=== PATIENT | male | born 1995 | race Hispanic/Latino ===

== ENCOUNTER 2017-12-16 08:59 | Emergency (ER) | payer SELFPAY ==
[2017-12-16 09:05] VITALS: BP 105/62; PULSE 75; RESP 14; TEMP 36.8; O2SAT 99; BMI 22.5
[2017-12-16] MEDS: SODIUM CHLORIDE 0.9% 1,000 ML 150 ML IV (09:34)
[2017-12-16 09:43] LABS: Add Manual Diff / Slide Review NO; Basophils Percent Auto 0.8 % (0-2); Eosinophils Percent Auto 0.9 % (2-4); Hematocrit 37.6 % (41-53); Hemoglobin 13.5 g/dL (13.5-17.5); Lymphocytes Percent Auto 32.1 % (25-40); Mean Corpuscular Hemoglobin 31.9 PG (26-34); Mean Corpuscular Volume 88.6 fL (80-100); Monocytes Percent Auto 7.8 % (3-14); Neutrophils Absolute Auto 2700 /uL (3000-5900); Neutrophils Percent Auto 58.4 % (50-75); Platelet Count 171 X10^3/uL (150-400); Red Blood Cell Count 4.25 X10^6/uL (4.5-5.9); Red Cell Distribution Width 12.5 % (11.6-14.8); White Blood Cell Count 4.7 X10^3/uL (4.5-11.0)
[2017-12-16 09:56] LABS: Alanine Aminotransferase 35 IU/L (21-72); Albumin 4.4 g/dL (3.5-5.0); Albumin Globulin Ratio 1.3 (1.0-2.8); Alkaline Phosphatase 61 U/L (38-126); Aspartate Aminotransferase 31 IU/L (17-59); BUN Creatinine Ratio 21.4 (6-22); Bilirubin Total 1.5 mg/dL (0.2-1.3); Calcium 9.3 mg/dL (8.4-10.2); Estimated Glomerular Filt Rate > 60.0 mL/min (>60); Globulin 3.4 g/dL (1.7-4.1); Glucose 94 mg/dL (70-100); HEMOLYSIS 29 (0-50); Lipase 14 U/L (23-300); Potassium 4.2 mmol/L (3.4-5.1); Sodium 141 mmol/L (137-145); Total Protein 7.8 g/dL (6.3-8.2)
--- NOTE | 2017-12-16 10:09 | DI.RAD.S_ITS ---
PROCEDURE: XR ACUTE ABDOMEN SERIES INDICATIONS: Abdominal pain TECHNIQUE: One view chest and two views of the abdomen were acquired. COMPARISON: None. FINDINGS: Surgical changes and devices: None. Chest: Lungs are clear. Heart size is normal. No pleural effusions. No pneumoperitoneum. Abdomen: Bowel gas pattern is normal. No suspicious calcifications. Visualized solid organ contours appear normal. Ingested radiodense material is present throughout the bowel. Bones: No suspicious bony lesions. IMPRESSION: No acute cardiopulmonary findings. No acute intra-abdominal findings. Dictated by: Jeannie Little M.D. on 12/16/2017 at 11:06 Approved by: Jeannie Little M.D. on 12/16/2017 at 11:07
--- NOTE | 2017-12-16 11:13 | ED_ITS ---
HPI - Abdominal Pain General Chief Complaint: Abdominal Pain Stated Complaint: NOT EATING FOR 3 DAYS,NAUSEA,DIARRHEA Time Seen by Provider: 12/16/17 09:12 Source: patient and family Mode of arrival: ambulatory Limitations: no limitations History of Present Illness HPI narrative: Patient presents to the emergency department with a chief complaint left lower quadrant pain and diarrhea for the past 3 days. He states the diarrhea started on Sunday and since then he has gradually developed left lower quadrant pain. He denies nausea or vomiting nor fever or chills. He has had no recent travel, exposure to bad foods or use of antibiotics. MD complaint: abdominal pain Onset (ago): day(s) Pain Consistency: constant Location: LLQ Severity: mild Quality: cramping and aching Radiation: none Migration to: no migration Relieving factors: rest Exacerbating factors: movement Associated symptoms: denies other symptoms Related Data Previous Rx's Medication Instructions Recorded diphenoxylate-atropine [Lomotil] 1 tab PO Q6H PRN #10 tab 12/16/17 ondansetron [Zofran ODT] 4 mg PO Q6H PRN #14 tab 12/16/17 Allergies Allergy/AdvReac Type Severity Reaction Status Date / Time No Known Drug Allergies Allergy Verified 12/16/17 09:08 Review of Systems Review of Systems All systems reviewed & are unremarkable except as noted in HPI and below Constitutional Denies chills, Denies fever(s), Denies lethargy and Denies weakness ENT Ears, Nose, Mouth, and Throat: Denies change in voice, Denies neck pain and Denies sore throat Cardiovascular Denies chest pain, Denies irregular heart rhythm, Denies lightheadedness, Denies palpitations, Denies dyspnea, Denies dyspnea on exertion and Denies orthopnea Respiratory Denies cough, Denies dyspnea, Denies dyspnea on exertion and Denies wheezing Gastrointestinal Gastrointestinal: Reports abdominal pain, Denies change in bowel habits, Reports diarrhea, Denies nausea and Denies vomiting Genitourinary Denies hematuria, Denies flank pain, Denies urinary incontinence and Denies urinary urgency Musculoskeletal Denies neck pain Integumentary/Breasts Denies pruritus, Denies erythema, Denies rash and Denies wounds Neurologic Denies weakness Endocrine Denies palpitations Hematologic/Lymphatic Denies easy bruising Allergic/Immunologic Denies wheezing PFSH Family History Grandmother Age: 68 Diabetes mellitus Heart disease Hypertension Social History Smoking Status: Current some day smoker Exam Narrative Exam Narrative: Pleasant 22-year-old male in no obvious distress Const General: cooperative, healthy appearing, comfortable and well developed Nutritional Appearance: well nourished Orientation: alert, awake, oriented x3 and not confused [facility] Head: normocephalic and atraumatic Ears: external ears normal and TM's normal bilaterally Nose: external nose normal and No nasal discharge Face and sinus: sinuses nontender, face symmetric, no sinus tenderness and No dry mucous membranes Mouth: oral mucosae normal and moist mucous membranes Teeth and gingiva: dentition normal Throat: tonsils normal and uvula midline Resp Effort & Inspection: normal respiratory effort, able to speak in complete sentences, no respiratory distress and no use of accessory muscles Auscultation: clear to auscultation bilaterally, no rales, no rhonchi and no wheezes GI Inspection: non-distended Palpation: soft, no hepatosplenomegaly, No guarding, No pulsatile mass and tender (Mildly in the left lower quadrant) Auscultation: normal bowel sounds Back/Spine/Pelvis Back: No CVA tenderness Cervical Spine: cervical ROM normal and No pain with cervical ROM Thoracic/Lumbar Spine: thoracic and lumbar spine normal to inspection Neuro General: alert, awake and oriented x3 Cognition: normal cognition Speech: speech normal Extrem General: full ROM, no clubbing, cyanosis or edema, no pedal edema and no calf tenderness MDM - Abdominal Pain Lab Data Result diagrams: 12/16/17 09:33 12/16/17 09:33 Lab Results 12/16/17 12/16/17 Range/Units 09:33 09:33 WBC 4.7 (4.5-11.0) X10^3/uL RBC 4.25 L (4.5-5.9) X10^6/uL Hgb 13.5 (13.5-17.5) g/dL Hct 37.6 L (41-53) % MCV 88.6 (80-100) fL MCH 31.9 (26-34) PG MCHC 36.0 (30-36) % RDW 12.5 (11.6-14.8) % Plt Count 171 (150-400) X10^3/uL Neut % (Auto) 58.4 (50-75) % Lymph % (Auto) 32.1 (25-40) % Davidson % (Auto) 7.8 (3-14) % Eos % (Auto) 0.9 L (2-4) % Baso % (Auto) 0.8 (0-2) % Neut # (Auto) 2700 L (7576-5835) /uL Sodium 141 (137-145) mmol/L Potassium 4.2 (3.4-5.1) mmol/L Chloride 103.0 (98-107) mmol/L Carbon Dioxide 25.0 (22-32) mmol/L BUN 15.0 (9-20) mg/dL Creatinine 0.70 (0.66-1.25) mg/dL Estimated GFR > 60.0 (>60) mL/min BUN/Creatinine Ratio 21.4 (6-22) Glucose 94 (70-100) mg/dL Calcium 9.3 (8.4-10.2) mg/dL Total Bilirubin 1.5 H (0.2-1.3) mg/dL AST 31 (17-59) IU/L ALT 35 (21-72) IU/L Alkaline Phosphatase 61 (38-126) U/L Total Protein 7.8 (6.3-8.2) g/dL Albumin 4.4 (3.5-5.0) g/dL Globulin 3.4 (1.7-4.1) g/dL Albumin/Globulin Ratio 1.3 (1.0-2.8) Lipase 14 L (23-300) U/L Imaging Data Abdominal x-ray: Radiologist's impression: PROCEDURE: XR ACUTE ABDOMEN SERIES INDICATIONS: Abdominal pain TECHNIQUE: One view chest and two views of the abdomen were acquired. COMPARISON: None. FINDINGS: Surgical changes and devices: None. Chest: Lungs are clear. Heart size is normal. No pleural effusions. No pneumoperitoneum. Abdomen: Bowel gas pattern is normal. No suspicious calcifications. Visualized solid organ contours appear normal. Ingested radiodense material is present throughout the bowel. Bones: No suspicious bony lesions. IMPRESSION: No acute cardiopulmonary findings. No acute intra-abdominal findings. Dictated by: Jeannie Little M.D. on 12/16/2017 at 11:06 Approved by: Jeannie Little M.D. on 12/16/2017 at 11:07 Course Orders Ordered: ED Orders 12/16/17 09:33 Complete Blood Count AUTO DIFF Stat Comprehensive Metabolic Panel Stat Lipase Stat 12/16/17 10:09 XR acute abdomen series Stat Discontinued Medications Sodium Chloride (Normal Saline 0.9%) 1,000 mls @ 150 mls/hr IV CONT ADOLFO Last Infusion: 12/16/17 11:14 Dose: 1,000 mls/hr Admin: 12/16/17 09:34 Dose: 150 mls/hr Last Vital Signs Temp 98.3 F 12/16/17 09:05 Pulse 54 L 12/16/17 11:21 Resp 17 12/16/17 11:21 BP 107/56 L 12/16/17 11:21 Pulse Ox 100 12/16/17 11:21 Discharge Plan Departure Patient Disposition: Home, Self-Care Clinical Impression: Enteritis Discharge Date/Time: 12/16/17 11:27 Interventions: ED Discharge Assessment Last Done: 12/16/17 11:26 Instructions: Diarrhea Activity Restrictions/Additional Instructions: 1. Drink plenty of fluids with frequent small sips. 2. For the next 24 hours a clear liquid diet is advised. After that please employ a brat diet which would include bananas, rice, apples, toast. 3. Please take medications as directed. 4. Please follow-up with your doctor in the next 1-2 days. Call the office for an appointment. 5. Please return to the emergency Department for any worsening or persistent symptoms, such as increasing pain or fever. Prescriptions: New diphenoxylate-atropine [Lomotil] 2.5-0.025 mg tablet 1 tab PO Q6H PRN (Reason: diarrhea) Qty: 10 RF: 0 ondansetron [Zofran ODT] 4 mg tablet,disintegrating 4 mg PO Q6H PRN (Reason: nausea and vomiting) Qty: 14 RF: 0 Referrals: Neymar Story MD [Primary Care Provider] - Stand Alone Forms: Work/School Restrictions
[2017-12-16 11:21] VITALS: BP 107/56; PULSE 54; RESP 17; O2SAT 100
== END 2017-12-16 11:27 | disposition home or self-care (01) ==
PROVIDERS: Emergency Provider Emergency Medicine; Family Provider Family Medicine; PCP Family Medicine
DX: K52.9 Noninfective gastroenteritis and colitis, unspecified (principal)
CPT/HCPCS: 36591; 74022; 80053; 83690; 85025; 99283; 99284

== ENCOUNTER 2019-07-02 14:33 | Emergency (ER) | payer OTHER, MEDICAID, SELFPAY ==
[2019-07-02 14:35] VITALS: BP 113/69; PULSE 62; RESP 16; TEMP 36.9; O2SAT 100
--- NOTE | 2019-07-02 15:20 | ED_ITS ---
HPI - Headache <TAL Terrell - Last Filed: 07/02/19 18:24> General Chief Complaint: Headache Stated Complaint: headache,nausea Time Seen by Provider: 07/02/19 14:53 Source: patient Mode of arrival: Ambulatory Limitations: no limitations History of Present Illness HPI Narrative: 24-year-old male who was recently seen in the [facility] Emergency Department on 06/28/2019, presents emergency department today complaining of a headache described as a dull aching 8/10 headache that is worse when he sits up it completely resolves with when he lies down. Patient reports when he was seen in the emergency department he had a spinal tap at that time due to elevated white blood cell count and previous headache, he was treated with antibiotics outpatient. His headache completely resolved after that visit to the emergency department. He states this headache is different from his previous headache. He reports associated Related Data Previous Rx's Medication Instructions Recorded diphenoxylate-atropine [Lomotil] 1 tab PO Q6H PRN #10 tab 12/16/17 ondansetron [Zofran ODT] 4 mg PO Q6H PRN #14 tab 12/16/17 metoclopramide HCl 10 mg PO Q6H PRN #14 tab 07/02/19 metoclopramide HCl 10 mg PO Q6H PRN #14 tab 07/02/19 Allergies Allergy/AdvReac Type Severity Reaction Status Date / Time No Known Drug Allergies Allergy Verified 12/16/17 09:08 Review of Systems <TAL Terrell - Last Filed: 07/02/19 18:24> Review of Systems Narrative: REVIEW OF SYSTEMS: GENERAL: Denies fever or chills. HENT: Reports headache, see HPI. EYES: No loss of vision, double vision, eye pain, or irritation. CARDIOVASCULAR: No chest pain or syncope. RESPIRATORY: No shortness of breath or cough. GASTROINTESTINAL: No nausea, vomiting, diarrhea, or constipation. GENITOURINARY: No flank pain or dysuria. MUSCULOSKELETAL: No pain, weakness, or deformities. INTEGUMENTARY: No rash, lesions, or pruritus. NEURO: No numbness, tingling, memory loss, or confusion. PSYCH: No behavior or mood changes. Patient History <TAL Terrell - Last Filed: 07/02/19 18:24> Medical History No significant medical problems (Acute) Family History Grandmother Age: 69 Diabetes mellitus Heart disease Hypertension Social History Smoking Status: Current some day smoker alcohol intake frequency: 0-2 drinks per day Substance Use Type: marijuana Exam <TAL Terrell - Last Filed: 07/02/19 18:24> Initial Vital Signs Initial Vital Signs: Vital Signs Temperature 98.4 F 07/02/19 14:35 Pulse Rate 62 07/02/19 14:35 Respiratory Rate 16 07/02/19 14:35 Blood Pressure 113/69 07/02/19 14:35 Pulse Oximetry 100 07/02/19 14:35 PHYSICAL EXAMINATION: GENERAL: Well groomed, alert, and cooperative. Answers questions promptly and appropriately. Vital signs noted. HENT: Normocephalic, atraumatic. Ear canals patent. Oral mucosa is pink and moist. Oropharynx without erythema, uvula midline, pronates. EYES: PERRLA, EOMIs, conjunctiva pink, sclera white, no periorbital swelling. CHEST: Normal to inspection and without deformities. CARDIOVASCULAR: S1 and S2 sounds normal. Regular rate and rhythm, no murmurs, clicks, or bruits. No pedal edema. RESPIRATORY: Normal respiratory rate, trachea midline, airway patent. No stridor, nasal flaring or accessory muscle use. Lungs are clear in all leavitt without wheeze, rhonchi, or crackles. GASTROINTESTINAL: Bowel sounds normoactive. Abdomen is soft and non-tender. No organomegaly. MUSCULOSKELETAL: Normal gait and coordination. Equal tone and mass bilaterally. EXTREMITIES: CMS intact. Moves all extremities. SKIN: Warm, dry, soft, appropriate color for ethnicity. No lesions, rashes, or wounds. NEURO: Alert and Oriented X 3. CN III-XIII grossly intact. Good coordination. No ataxia, or sensory deficits, or cognitive issues. Patient able to ambulate without return of headache. PSYCH: Appropriate affect and mood. <Jazmin Munoz DO - Last Filed: 07/04/19 07:05> Initial Vital Signs Initial Vital Signs: Vital Signs Temperature 98.4 F 07/02/19 14:35 Pulse Rate 62 07/02/19 14:35 Respiratory Rate 16 07/02/19 14:35 Blood Pressure 113/69 07/02/19 14:35 Pulse Oximetry 100 07/02/19 14:35 Course <TAL Terrell - Last Filed: 07/02/19 18:24> Course Course Narrative: Records were obtained from [facility] Emergency Department for a visit on 06/28/2019: WBC: 19.7 Neutrophils 93% Influenza: Negative CT head: Negative head CT, no evidence of acute stroke, hemorrhage, or mass. Spinal fluid negative for bacteria, or viral etiology. He was given normal saline, dense return, Benadryl, Reglan, ceftriaxone, vancomycin, and haloperidol. Patient was given 2 L of normal saline, 10 mg of Reglan IV, 30 mg of Toradol IV, and 25 mg of Benadryl IV. He states his headache completely resolved. He was able to ambulate around the emergency department with bright lights and sat up for more than 20 minutes without return of spinal headache. Patient states he is ready for discharge at this time. He remained hemodynamically stable throughout his stay. Orders Ordered: Discontinued Medications Diphenhydramine HCl (Benadryl) 25 mg IV NOW ONE Stop: 07/02/19 15:11 Last Admin: 07/02/19 15:51 Dose: 25 mg Documented by: BRYAN Ketorolac Tromethamine (Toradol) 30 mg IV NOW ONE Stop: 07/02/19 15:11 Last Admin: 07/02/19 15:51 Dose: 30 mg Documented by: BRYAN Metoclopramide HCl (Reglan) 10 mg IV NOW ONE Stop: 07/02/19 15:11 Last Admin: 07/02/19 15:51 Dose: 10 mg Documented by: BRYAN Consultations Consultation #1: Patient staffed with Dr. Munoz. Vital Signs Vital signs: Vital Signs - 8 hr 07/02/19 14:35 07/02/19 16:41 Temperature 98.4 F Pulse Rate 62 60 Respiratory Rate 16 Blood Pressure 113/69 Blood Pressure [Right Arm] 118/56 L Pulse Oximetry 100 100 <Jazmin Munoz DO - Last Filed: 07/04/19 07:05> Orders Ordered: Discontinued Medications Diphenhydramine HCl (Benadryl) 25 mg IV NOW ONE Stop: 07/02/19 15:11 Last Admin: 07/02/19 15:51 Dose: 25 mg Documented by: BRYAN Ketorolac Tromethamine (Toradol) 30 mg IV NOW ONE Stop: 07/02/19 15:11 Last Admin: 07/02/19 15:51 Dose: 30 mg Documented by: BRYAN Metoclopramide HCl (Reglan) 10 mg IV NOW ONE Stop: 07/02/19 15:11 Last Admin: 07/02/19 15:51 Dose: 10 mg Documented by: BRYAN Vital Signs Vital signs: Vital Signs - 8 hr 07/02/19 14:35 07/02/19 16:41 Temperature 98.4 F Pulse Rate 62 60 Respiratory Rate 16 Blood Pressure 113/69 Blood Pressure [Right Arm] 118/56 L Pulse Oximetry 100 100 MDM - Headache <TAL Terrell - Last Filed: 07/02/19 18:24> Medical Records Attestation: I reviewed the patient's medical records. Lab Data Attestation: I reviewed the patient's lab results. Result diagrams: 07/02/19 14:45 Labs: Lab Results 07/02/19 Range/Units 14:45 WBC 8.3 (4.5-11.0) X10^3/uL RBC 4.07 L (4.5-5.9) X10^6/uL Hgb 13.1 L (13.5-17.5) g/dL Hct 36.9 L (41-53) % MCV 90.8 (80-100) fL MCH 32.1 (26-34) PG MCHC 35.4 (30-36) % RDW 12.8 (11.6-14.8) % Plt Count 197 (150-400) X10^3/uL Neut % (Auto) 65.2 (50-75) % Lymph % (Auto) 28.8 (25-40) % Duval % (Auto) 5.1 (3-14) % Eos % (Auto) 0.4 L (2-4) % Baso % (Auto) 0.5 (0-2) % Neut # (Auto) 5400 (5075-7996) /uL Lymph # (Auto) 2400 (5052-2086) /uL Duval # (Auto) 400 (0-900) /uL Eos # (Auto) 0 (0-450) /uL Baso # (Auto) 0 (0-100) /uL MDM Narrative Medical decision making narrative: This is a 24-year-old male who presents to the emergency department for what appears to be a spinal headache after a spinal tap done on 06/28/2019 at [facility]. His headache completely resolved while lying supine but return when sitting up. He had associated phonophobia and photophobia. After administration of normal saline, Reglan, Benadryl, and ibuprofen, his headache completely resolved as with his other symptoms, he was able to ambulate around the emergency department and set up for greater than 20 minutes without return of symptoms. I do not feel that patient needs a blood patch at this point as he remains hemodynamically stable and his symptoms are completely resolved. Less likely cranial bleed as CT earlier this week was negative, less likely infection due to lack of systemic symptoms such as fever or tachycardia. Differential also includes migraine. Patient was encouraged to follow up with his primary care provider on Sunday as scheduled. He was given strict return precautions for new or worsening symptoms. <Jazmin Munoz DO - Last Filed: 07/04/19 07:05> Lab Data Labs: Lab Results 07/02/19 Range/Units 14:45 WBC 8.3 (4.5-11.0) X10^3/uL RBC 4.07 L (4.5-5.9) X10^6/uL Hgb 13.1 L (13.5-17.5) g/dL Hct 36.9 L (41-53) % MCV 90.8 (80-100) fL MCH 32.1 (26-34) PG MCHC 35.4 (30-36) % RDW 12.8 (11.6-14.8) % Plt Count 197 (150-400) X10^3/uL Neut % (Auto) 65.2 (50-75) % Lymph % (Auto) 28.8 (25-40) % Duval % (Auto) 5.1 (3-14) % Eos % (Auto) 0.4 L (2-4) % Baso % (Auto) 0.5 (0-2) % Neut # (Auto) 5400 (9280-7758) /uL Lymph # (Auto) 2400 (3519-3124) /uL Duval # (Auto) 400 (0-900) /uL Eos # (Auto) 0 (0-450) /uL Baso # (Auto) 0 (0-100) /uL Discharge Plan Departure Patient Disposition: Home Clinical Impression: Post-dural puncture headache Discharge Date/Time: 07/02/19 17:14 Instructions: DI for Post-Spinal Puncture Headache Activity Restrictions/Additional Instructions: Thank you for entrusting me with your care today. As discussed, I have given you a prescription for Reglan (metoclopramide) this was sent to [facility] in [place], if your headache returned please take this, Benadryl 25 mg, and ibuprofen 600 mg as this should help resolve your pain. Follow-up with your primary care provider as planned on Sunday. Return emergency department for new or worsening symptoms such as severe headaches, uncontrollable vomiting, fevers, chest pain, shortness of breath, or other concerns. Prescriptions: New metoclopramide HCl 10 mg tablet 10 mg PO Q6H PRN (Reason: nausea and vomiting) Qty: 14 RF: 0 metoclopramide HCl 10 mg tablet 10 mg PO Q6H PRN (Reason: nausea and vomiting) Qty: 14 RF: 0 No Action diphenoxylate-atropine [Lomotil] 2.5-0.025 mg tablet 1 tab PO Q6H PRN (Reason: diarrhea) Qty: 10 RF: 0 ondansetron [Zofran ODT] 4 mg tablet,disintegrating 4 mg PO Q6H PRN (Reason: nausea and vomiting) Qty: 14 RF: 0 Referrals: Neymar Story MD [Primary Care Provider] -
[2019-07-02] MEDS: KETOROLAC 60 MG/2 ML VIAL 30 MG IV (15:51)
[2019-07-02] MEDS: METOCLOPRAMIDE 10 MG/2 ML INJ IV (15:51)
[2019-07-02] MEDS: diphenhydrAMINE 50 MG/ML VIAL 25 MG IV (15:51)
[2019-07-02 16:41] VITALS: BP 118/56; PULSE 60; O2SAT 100
[2019-07-02 17:12] LABS: Add Manual Diff / Slide Review NO; Basophils Absolute Auto 0 /uL (0-100); Basophils Percent Auto 0.5 % (0-2); Eosinophils Absolute Auto 0 /uL (0-450); Eosinophils Percent Auto 0.4 % (2-4); Hematocrit 36.9 % (41-53); Hemoglobin 13.1 g/dL (13.5-17.5); Lymphocytes Absolute Auto 2400 /uL (1100-4500); Lymphocytes Percent Auto 28.8 % (25-40); Mean Corpuscular HGB Conc 35.4 % (30-36); Mean Corpuscular Hemoglobin 32.1 PG (26-34); Mean Corpuscular Volume 90.8 fL (80-100); Monocytes Absolute Auto 400 /uL (0-900); Monocytes Percent Auto 5.1 % (3-14); Neutrophils Absolute Auto 5400 /uL (1500-7000); Neutrophils Percent Auto 65.2 % (50-75); Platelet Count 197 X10^3/uL (150-400); Red Blood Cell Count 4.07 X10^6/uL (4.5-5.9); Red Cell Distribution Width 12.8 % (11.6-14.8); White Blood Cell Count 8.3 X10^3/uL (4.5-11.0)
== END 2019-07-02 17:14 | disposition home or self-care (01) ==
PROVIDERS: Emergency Provider Nurse Practitioner; Family Provider Family Medicine; PCP Family Medicine
DX: G97.1 Other reaction to spinal and lumbar puncture (principal); R50.9 Fever, unspecified; R51 Headache
CPT/HCPCS: 85025; 96374; 96375; 99282; 99284; J1200; J1885; J2765

== ENCOUNTER → 2019-07-07 14:43 | Outpatient (CLI) | payer OTHER, SELFPAY ==
[2019-07-07 15:00] LABS: Add Manual Diff / Slide Review NO; Basophils Absolute Auto 100 /uL (0-100); Basophils Percent Auto 0.4 % (0-2); Eosinophils Absolute Auto 100 /uL (0-450); Eosinophils Percent Auto 0.4 % (2-4); Hematocrit 37.3 % (41-53); Hemoglobin 12.9 g/dL (13.5-17.5); Lymphocytes Absolute Auto 2300 /uL (1100-4500); Lymphocytes Percent Auto 16.3 % (25-40); Mean Corpuscular HGB Conc 34.5 % (30-36); Mean Corpuscular Hemoglobin 31.4 PG (26-34); Monocytes Absolute Auto 900 /uL (0-900); Monocytes Percent Auto 6.5 % (3-14); Neutrophils Absolute Auto 10800 /uL (1500-7000); Neutrophils Percent Auto 76.4 % (50-75); Platelet Count 232 X10^3/uL (150-400); Red Blood Cell Count 4.09 X10^6/uL (4.5-5.9); Red Cell Distribution Width 13.2 % (11.6-14.8); White Blood Cell Count 14.2 X10^3/uL (4.5-11.0)
[2019-07-07 15:50] LABS: Alanine Aminotransferase 26 IU/L (<50); Albumin 4.6 g/dL (3.5-5.0); Albumin Globulin Ratio 1.5 (1.0-2.8); Alkaline Phosphatase 70 U/L (38-126); Aspartate Aminotransferase 26 IU/L (17-59); BUN Creatinine Ratio 18.6 (6-22); Bilirubin Total 1.3 mg/dL (0.2-1.3); Blood Urea Nitrogen 13 mg/dL (9-20); Calcium 10.1 mg/dL (8.4-10.2); Carbon Dioxide 29 mmol/L (22-32); Chloride 102 mmol/L (98-107); Estimated Glomerular Filt Rate > 60.0 mL/min (>60); Globulin 3.1 g/dL (1.7-4.1); Glucose 85 mg/dL (70-100); HEMOLYSIS < 15 (0-50); Sodium 139 mmol/L (137-145); Total Protein 7.7 g/dL (6.3-8.2)
== END ==
PROVIDERS: PCP Family Medicine; Visit Provider Family Medicine
DX: D72.829 Elevated white blood cell count, unspecified (principal)
CPT/HCPCS: 36415; 80053; 85025

== ENCOUNTER 2019-07-20 19:12 | Emergency (ER) | payer OTHER, MEDICAID, SELFPAY ==
[2019-07-20 19:15] VITALS: BP 107/65; PULSE 63; RESP 18; TEMP 37.1; O2SAT 99
--- NOTE | 2019-07-21 00:36 | ED.HA ---
HPI - Headache General Chief Complaint: Headache Stated Complaint: Headache for 3 Weeks Mode of arrival: Ambulatory Related Data Previous Rx's Medication Instructions Recorded diphenoxylate-atropine [Lomotil] 1 tab PO Q6H PRN #10 tab 12/16/17 ondansetron [Zofran ODT] 4 mg PO Q6H PRN #14 tab 12/16/17 metoclopramide HCl 10 mg PO Q6H PRN #14 tab 07/02/19 metoclopramide HCl 10 mg PO Q6H PRN #14 tab 07/02/19 Allergies Allergy/AdvReac Type Severity Reaction Status Date / Time No Known Drug Allergies Allergy Verified 07/07/19 15:17 Patient History Social History marital status: Smoking Status: Current some day smoker alcohol intake: current (ON OCCASION ) substance use type: marijuana Smoking Status: Current some day smoker alcohol intake frequency: 0-2 drinks per day Substance Use Type: marijuana Exam Initial Vital Signs Initial Vital Signs: Vital Signs Temperature 98.7 F 07/20/19 19:15 Pulse Rate 63 07/20/19 19:15 Respiratory Rate 18 07/20/19 19:15 Blood Pressure 107/65 07/20/19 19:15 Pulse Oximetry 99 07/20/19 19:15 Course Vital Signs Vital signs: Vital Signs - 8 hr 07/20/19 19:15 Temperature 98.7 F Pulse Rate 63 Respiratory Rate 18 Blood Pressure 107/65 Pulse Oximetry 99 Discharge Plan Departure Patient Disposition: Left Without Being Seen Clinical Impression: Patient left without being seen Discharge Date/Time: 07/20/19 21:31
== END 2019-07-20 21:31 | disposition left against medical advice (07) ==
PROVIDERS: Emergency Provider Emergency Medicine; PCP Family Medicine

== ENCOUNTER 2019-09-21 06:04 | Emergency (ER) | payer OTHER, MEDICAID, SELFPAY ==
[2019-09-21 06:05] VITALS: BP 131/83; PULSE 59; RESP 18; TEMP 36.6; O2SAT 100
--- NOTE | 2019-09-21 06:17 | ED_ITS ---
HPI - Nausea/Vomiting/Diarrhea General Chief complaint: Nausea/Vomiting/Diarrhea Stated complaint: food poisoning/vomiting coffee grounds/diarrhea Time Seen by Provider: 09/21/19 06:07 Source: patient and family Mode of arrival: Ambulatory Limitations: no limitations History of Present Illness HPI Narrative: 24-year-old male nonsmoker with noncontributory medical history presents with his significant other and a chief complaint of multiple episodes of nausea, vomiting, diarrhea and generalized abdominal cramping after eating some fish for dinner. He does have generalized abdominal cramping that builds until a bowel movement. He denies any persistent pain. He denies any fever or chills. He feels fatigued and perhaps a dizzy spell or to has been present Related Data Previous Rx's Medication Instructions Recorded [id number] 1 cap PO Q8H PRN #10 cap 07/21/19 50 mg-300 mg-40 mg capsule ondansetron 4 mg PO TID-QID PRN #10 tab 09/21/19 Allergies Allergy/AdvReac Type Severity Reaction Status Date / Time No Known Drug Allergies Allergy Verified 07/21/19 15:26 Review of Systems Constitutional Constitutional: Denies chills, Denies fatigue, Denies fever(s), Denies frequent falls, Denies lethargy and Denies weakness Eyes Eyes: Denies change in vision, Denies eye discharge, Denies irritation and Denies loss of vision ENT Ears, Nose, Mouth, and Throat: Denies change in voice, Denies dizziness, Denies neck pain, Denies sore throat and Denies throat swelling Cardiovascular Cardiovascular: Denies chest pain, Denies irregular heart rhythm, Denies lightheadedness, Denies palpitations, Denies dyspnea, Denies dyspnea on exertion and Denies orthopnea Respiratory Respiratory: Denies cough, Denies dyspnea, Denies dyspnea on exertion and Denies wheezing Gastrointestinal Gastrointestinal: Reports abdominal pain, Denies change in bowel habits, Reports diarrhea, Reports nausea and Reports vomiting Genitourinary Genitourinary: Denies hematuria, Denies flank pain, Denies urinary incontinence and Denies urinary urgency Musculoskeletal Musculoskeletal: Denies back pain, Denies muscle weakness, Denies neck pain, Denies numbness and Denies tingling Integumentary/Breasts Skin/Breast: Denies pruritus, Denies erythema, Denies rash and Denies wounds Neurologic Neurologic: Denies behavioral changes, Denies confusion, Denies dizziness, Denies frequent falls, Denies loss of vision, Denies numbness, Denies tingling and Denies weakness Psychiatric Psychiatric: Denies anxiety, Denies behavioral changes, Denies confusion, Denies depression, Denies homicidal ideation and Denies suicidal ideation Endocrine Endocrine: Denies fatigue, Denies flushing and Denies palpitations Hematologic/Lymphatic Hematologic/Lymphatic: Denies easy bruising Allergic/Immunologic Allergic/Immunologic: Denies urticaria, Denies throat swelling and Denies wheezing Patient History Medical History No significant medical problems (Acute) Family History Grandmother Age: 70 Diabetes mellitus Heart disease Hypertension Social History marital status: Smoking Status: Current some day smoker alcohol intake: current (ON OCCASION ) substance use type: marijuana Smoking Status: Current some day smoker alcohol intake frequency: 0-2 drinks per day Substance Use Type: marijuana Exam Narrative Exam Narrative: GENERAL: [24] year old patient appears stated age. Well- nourished, well-developed patient, in moderate distress, actively vomiting HEAD: Atraumatic. Normocephalic. EYES: Pupils equal round and reactive. Extraocular motions intact. No scleral icterus. No injection or drainage. ENT: Nose without bleeding, purulent drainage. Throat without erythema, tonsillar hypertrophy or exudate. Airway patent. NECK: Trachea midline. Non tender CARDIOVASCULAR: Regular rate and rhythm without murmurs, gallops, or rubs. RESPIRATORY: Clear to auscultation. Breath sounds equal bilaterally. No wheezes, rales, or rhonchi. GASTROINTESTINAL: Abdomen soft, non-tender, nondistended. Increased bowel sounds EXTREMITIES: No edema or joint tenderness. BACK: Nontender without deformity or crepitance. No flank tenderness. NEURO: AOx3. SKIN: No rash or erythema of visible areas Initial Vital Signs Initial Vital Signs: Vital Signs Temperature 97.9 F 09/21/19 06:05 Pulse Rate 59 L 09/21/19 06:05 Respiratory Rate 18 09/21/19 06:05 Blood Pressure 131/83 09/21/19 06:05 Pulse Oximetry 100 09/21/19 06:05 Course Orders Ordered: Discontinued Medications Sodium Chloride (Normal Saline 0.9%) 1,000 mls @ 1,000 mls/hr IV BOLUS ONE Stop: 09/21/19 07:17 Last Infusion: 09/21/19 07:28 Dose: 0 mls/hr Documented by: Admin: 09/21/19 06:25 Dose: 1,000 mls/hr Documented by: TAMRA Ondansetron HCl (Zofran) 4 mg IV Q4HR PRN PRN Reason: Nausea And Vomiting Last Admin: 09/21/19 06:25 Dose: 4 mg Documented by: TAMRA Ondansetron HCl (Zofran Odt Prepack) 1 bottle MISC SEEINSTR ONE Stop: 09/21/19 07:44 Last Admin: 09/21/19 07:50 Dose: 1 bottle Documented by: SUSANA Pantoprazole Sodium (Protonix) 40 mg IV NOW ONE Stop: 09/21/19 06:19 Last Admin: 09/21/19 06:25 Dose: 40 mg Documented by: TAMRA Vital Signs Vital signs: Vital Signs - 8 hr 09/21/19 06:05 Temperature 97.9 F Pulse Rate 59 L Respiratory Rate 18 Blood Pressure 131/83 Pulse Oximetry 100 MDM - Nausea/Vomiting/Diarrhea Lab Data Result diagrams: 09/21/19 06:20 09/21/19 06:20 Labs: Lab Results 09/21/19 09/21/19 Range/Units 06:20 06:20 WBC 9.7 (4.5-11.0) X10^3/uL RBC 4.44 L (4.5-5.9) X10^6/uL Hgb 14.2 (13.5-17.5) g/dL Hct 40.7 L (41-53) % MCV 91.7 (80-100) fL MCH 31.9 (26-34) PG MCHC 34.8 (30-36) % RDW 13.0 (11.6-14.8) % Plt Count 188 (150-400) X10^3/uL Neut % (Auto) 66.2 (50-75) % Lymph % (Auto) 27.5 (25-40) % [place] % (Auto) 5.4 (3-14) % Eos % (Auto) 0.4 L (2-4) % Baso % (Auto) 0.5 (0-2) % Neut # (Auto) 6400 (5130-5718) /uL Lymph # (Auto) 2700 (9024-9835) /uL [place] # (Auto) 500 (0-900) /uL Eos # (Auto) 0 (0-450) /uL Baso # (Auto) 100 (0-100) /uL Sodium 140 (137-145) mmol/L Potassium 3.3 L (3.4-5.1) mmol/L Chloride 102 (98-107) mmol/L Carbon Dioxide 25 (22-32) mmol/L BUN 14 (9-20) mg/dL Creatinine 0.80 (0.66-1.25) mg/dL Estimated GFR > 60.0 (>60) mL/min BUN/Creatinine Ratio 17.5 (6-22) Glucose 110 H (70-100) mg/dL Calcium 10.2 (8.4-10.2) mg/dL MDM Narrative Medical decision making narrative: Patient has tremendous improvement in symptoms after above-stated therapies. He has had his return precautions given and questions answered to his apparent satisfaction Discharge Plan Departure Patient Disposition: Home Clinical Impression: Nausea, Vomiting, and Diarrhea Discharge Date/Time: 09/21/19 07:53 Instructions: DI for Vomiting -- Adult Activity Restrictions/Additional Instructions: 1. Drink plenty of fluids with frequent small sips. 2. For the next 24 hours a clear liquid diet is advised. After that please employ a brat diet which would include bananas, rice, apples, toast. 3. Please take medications as directed. 4. Please follow-up with your doctor in the next 1-2 days. Call the office for an appointment. 5. Please return to the emergency Department for any worsening or persistent symptoms, such as increasing pain or fever. Prescriptions: New ondansetron 4 mg tablet,disintegrating 4 mg PO TID-QID PRN (Reason: nausea and vomiting) Qty: 10 RF: 0 No Action [id number] 50-300-40 mg capsule 1 cap PO Q8H PRN (Reason: pain) Qty: 10 RF: 0 Referrals: Neymar Story MD [Primary Care Provider] -
[2019-09-21] MEDS: ONDANSETRON 4 MG/2 ML INJ IV (06:25)
[2019-09-21] MEDS: PANTOPRAZOLE 40 MG VIAL IV (06:25)
[2019-09-21] MEDS: SODIUM CHLORIDE 0.9% 1,000 ML 1000 ML IV (06:25)
[2019-09-21 06:33] LABS: Add Manual Diff / Slide Review NO; Basophils Absolute Auto 100 /uL (0-100); Basophils Percent Auto 0.5 % (0-2); Eosinophils Absolute Auto 0 /uL (0-450); Eosinophils Percent Auto 0.4 % (2-4); Hematocrit 40.7 % (41-53); Hemoglobin 14.2 g/dL (13.5-17.5); Lymphocytes Absolute Auto 2700 /uL (1100-4500); Lymphocytes Percent Auto 27.5 % (25-40); Mean Corpuscular HGB Conc 34.8 % (30-36); Mean Corpuscular Hemoglobin 31.9 PG (26-34); Mean Corpuscular Volume 91.7 fL (80-100); Monocytes Absolute Auto 500 /uL (0-900); Monocytes Percent Auto 5.4 % (3-14); Neutrophils Absolute Auto 6400 /uL (1500-7000); Neutrophils Percent Auto 66.2 % (50-75); Platelet Count 188 X10^3/uL (150-400); Red Blood Cell Count 4.44 X10^6/uL (4.5-5.9); White Blood Cell Count 9.7 X10^3/uL (4.5-11.0)
[2019-09-21 06:39] LABS: BUN Creatinine Ratio 17.5 (6-22); Blood Urea Nitrogen 14 mg/dL (9-20); Calcium 10.2 mg/dL (8.4-10.2); Carbon Dioxide 25 mmol/L (22-32); Chloride 102 mmol/L (98-107); Estimated Glomerular Filt Rate > 60.0 mL/min (>60); Glucose 110 mg/dL (70-100); HEMOLYSIS < 15 (0-50); Potassium 3.3 mmol/L (3.4-5.1); Sodium 140 mmol/L (137-145)
[2019-09-21] MEDS: ONDANSETRON 4 MG ODT PREPACK 1 BOTTLE MISC (07:50)
[2019-09-21 07:53] VITALS: BP 128/71; PULSE 62; RESP 18; O2SAT 98
== END 2019-09-21 07:53 | disposition home or self-care (01) ==
PROVIDERS: Emergency Provider Emergency Medicine; PCP Family Medicine
DX: R11.2 Nausea with vomiting, unspecified (principal); R19.7 Diarrhea, unspecified
CPT/HCPCS: 36415; 80048; 85025; 96361; 96374; 96375; 99284; C9113; J2405

== ENCOUNTER → 2020-04-23 15:21 | Outpatient (CLI) | payer OTHER, MEDICAID, SELFPAY ==
[2020-04-23 15:49] LABS: Add Manual Diff / Slide Review NO; Basophils Absolute Auto 100 /uL (0-100); Basophils Percent Auto 1.2 % (0-2); Eosinophils Absolute Auto 0 /uL (0-450); Eosinophils Percent Auto 0.6 % (2-4); Hematocrit 39.6 % (41-53); Hemoglobin 13.8 g/dL (13.5-17.5); Lymphocytes Absolute Auto 2100 /uL (1100-4500); Lymphocytes Percent Auto 35.1 % (25-40); Mean Corpuscular HGB Conc 34.8 % (30-36); Mean Corpuscular Hemoglobin 31.9 PG (26-34); Mean Corpuscular Volume 91.7 fL (80-100); Monocytes Absolute Auto 600 /uL (0-900); Neutrophils Absolute Auto 3100 /uL (1500-7000); Neutrophils Percent Auto 53.1 % (50-75); Platelet Count 180 X10^3/uL (150-400); Red Blood Cell Count 4.32 X10^6/uL (4.5-5.9); White Blood Cell Count 5.9 X10^3/uL (4.5-11.0)
[2020-04-23 16:58] LABS: Alanine Aminotransferase 16 IU/L (<50); Albumin 4.6 g/dL (3.5-5.0); Albumin Globulin Ratio 1.5 (1.0-2.8); Alkaline Phosphatase 61 U/L (38-126); Aspartate Aminotransferase 23 IU/L (17-59); BUN Creatinine Ratio 18.4 (6-22); Bilirubin Total 1.2 mg/dL (0.2-1.3); Blood Urea Nitrogen 16 mg/dL (9-20); Calcium 9.9 mg/dL (8.4-10.2); Carbon Dioxide 29 mmol/L (22-32); Chloride 104 mmol/L (98-107); Estimated Glomerular Filt Rate > 60.0 mL/min (>60); Glucose 69 mg/dL (70-100); HEMOLYSIS < 15 (0-50); Lipase 27 U/L (23-300); Potassium 4.1 mmol/L (3.4-5.1); Sodium 140 mmol/L (137-145); Total Protein 7.6 g/dL (6.3-8.2)
[2020-04-23 17:05] LABS: C-Reactive Protein Quant < 0.5 mg/dL (<1.0)
[2020-04-23 17:25] LABS: TSH w/ Reflex to FT4 1.18 uIU/mL (0.47-4.68)
[2020-04-24 03:22] LABS: HBsAg Screen Negative (Negative); Hepatitis A Antibody IgM Negative (Negative); Hepatitis B Core Antibody IgM Negative (Negative); Hepatitis C Antibody <0.1 s/co ratio (0.0-0.9)
== END ==
PROVIDERS: PCP Family Medicine; Referring Provider Physician Assistant; Visit Provider Physician Assistant
DX: R10.9 Unspecified abdominal pain (principal); R19.7 Diarrhea, unspecified
CPT/HCPCS: 36415; 80053; 80074; 83690; 84443; 85025; 86140

== ENCOUNTER → 2020-04-27 07:43 | Outpatient (CLI) | payer OTHER, MEDICAID, SELFPAY ==
[2020-04-27 09:59] LABS: Adenovirus F 40/41 Not Detected (Not Detect); Astrovirus Not Detected (Not Detect); Campylobacter Not Detected (Not Detect); Clostridium difficile toxin AB Not Detected (Not Detect); Cryptosporidium Not Detected (Not Detect); Cyclospora cayetanensis Not Detected (Not Detect); Entamoeba histolytica Not Detected (Not Detect); Enteroaggregative E.coli Not Detected (Not Detect); Enteropathogenic E.coli Not Detected (Not Detect); Enterotoxigenic E.coli It/st Not Detected (Not Detect); Giardia lamblia Not Detected (Not Detect); Norovirus GI/GII Not Detected (Not Detect); Plesiomonsa shigelloides Not Detected (Not Detect); Rotavirus A Not Detected (Not Detect); Salmonella Not Detected (Not Detect); Sapovirus Not Detected (Not Detect); Shiga-like toxin-prod E.coli Not Detected (Not Detect); Shigella/Enteroinvasive E.coli Not Detected (Not Detect); Vibrio Not Detected (Not Detect); Vibrio cholerae Not Detected (Not Detect); Yersinia enterocolitica Not Detected (Not Detect)
== END ==
PROVIDERS: PCP Family Medicine; Referring Provider Physician Assistant; Visit Provider Physician Assistant
DX: R10.9 Unspecified abdominal pain (principal); R19.7 Diarrhea, unspecified
CPT/HCPCS: 87507